=== PATIENT | male | born 1965 | race Two or more races ===

== ENCOUNTER 2020-08-23 09:17 | Outpatient (CLI) | payer OTHER | END 2020-08-23 09:30 | disposition home or self-care (01) | LOC: TOM 09:17 | PROVIDERS: ATTEND Internal Medicine Gastroenterology | DX: K63.5 Polyp of colon (principal); R10.84 Generalized abdominal pain ==

== ENCOUNTER 2021-01-18 09:09 | Outpatient (CLI) | payer OTHER | END 2021-01-18 09:14 | disposition home or self-care (01) | LOC: RX STUDY 09:09 | DX: K21.9 Gastro-esophageal reflux disease without esophagitis (principal); K22.8 Other specified diseases of esophagus ==